=== PATIENT | female | born 1975 | race Hispanic/Latino ===

== ENCOUNTER → 2023-05-27 | Outpatient (CLI) | payer MEDICAID ==
[2023-05-27 15:57] LABS: CREATININE 0.9 mg/dL (0.5-1.0)
== END | disposition home or self-care (01) ==
LOC: LAB 15:12
PROVIDERS: ATTEND Surgery
DX: D17.5 Benign lipomatous neoplasm of intra-abdominal organs (principal)
CPT/HCPCS: 36415; 82565; 84520

== ENCOUNTER → 2023-06-03 | Outpatient (CLI) | payer MEDICAID ==
[~2023-06-03] MED LIST: IOHEXOL 350 MG/ML 100ML INFUS..BTL IV ONE
== END | disposition home or self-care (01) ==
LOC: RAH 07:48
PROVIDERS: ATTEND Surgery
DX: R16.0 Hepatomegaly, not elsewhere classified (principal); I70.90 Unspecified atherosclerosis; D17.5 Benign lipomatous neoplasm of intra-abdominal organs; Z90.49 Acquired absence of other specified parts of digestive tract
CPT/HCPCS: 74177; Q9967

== ENCOUNTER 2023-08-12 06:43 | Day surgery (SDC) | payer MEDICAID ==
[2023-08-07 12:29] LABS: BASOPHILS # (AUTO) 0.04 K/uL (0.00-0.20); BASOPHILS % (AUTO) 0.6 % (0.0-5.0); EOSINOPHILS # (AUTO) 0.14 K/uL (0.00-0.70); EOSINOPHILS % (AUTO) 2.2 % (0.0-8.0); HEMATOCRIT 44.9 % (36-48); IMMATURE GRANULOCYTE ABSOLUTE 0.02 K/uL (0-1); LYMPHOCYTES # (AUTO) 2.2 K/uL (1.0-4.8); LYMPHOCYTES % (AUTO) 34.3 % (21.0-51.0); MEAN CORPUSCULAR HEMOGLOBIN 27.9 pg (27.0-33.0); MEAN CORPUSCULAR HGB CONC 33.2 g/dL (32.0-36.0); MEAN CORPUSCULAR VOLUME 84.1 fL (79-99); MONOCYTES # (AUTO) 0.4 K/uL (0.1-1.0); MONOCYTES % (AUTO) 5.8 % (3.0-13.0); NEUTROPHILS # (AUTO) 3.6 K/uL (1.8-7.7); NEUTROPHILS % (AUTO) 56.8 % (40.0-77.0); PLATELET COUNT (AUTO) 310 K/uL (130-400); RED BLOOD CELL COUNT(AUTO) 5.34 MIL/uL (4.00-5.50); RED CELL DISTRIBUTION WIDTH 13.1 % (11.0-15.5); WHITE BLOOD COUNT (AUTO) 6.4 K/uL (4.8-10.8)
[2023-08-07 12:35] VITALS: BP 163/71; PULSE 78; RESP 18
[2023-08-12] VITALS (18 sets, daily range): BP systolic 81–149; BP diastolic 39–87; PULSE 78–104; RESP 13–18
[2023-08-12] MEDS: LACTATED RINGERS 1000ML 1,000 ML IV ONE (08:38)
[2023-08-12] MEDS: CEFAZOLIN SODIUM 2 GM VIAL ONE (08:39)
[2023-08-12] MEDS: CEFAZOLIN SODIUM 1 GM VIAL ONE (08:39)
[2023-08-12] MEDS ORDERED: DEXAMETHASONE SOD PHOSPHATE 10MG/ML 1ML VIAL ONE (08:54)
[2023-08-12] MEDS ORDERED: LIDOCAINE PF 100MG/5ML (2%) SYRINGE 5ML ONE (08:54)
[2023-08-12] MEDS ORDERED: SUCCINYLCHOLINE CHLORIDE 20 MG/ML 10 ML VIAL ONE (08:55)
[2023-08-12] MEDS ORDERED: ROCURONIUM BROMIDE 10MG/1ML 5ML VL ONE (08:55)
[2023-08-12] MEDS ORDERED: GLYCOPYRROLATE 0.2 MG/ML 5 ML VIAL ONE (08:55)
[2023-08-12] MEDS ORDERED: ONDANSETRON 4MG INJ ONE (08:55)
[2023-08-12] MEDS ORDERED: MIDAZOLAM HCL 1 MG/ML 2ML VIAL ONE (08:55)
[2023-08-12] MEDS ORDERED: NEOSTIGMINE METHYLSULFATE 1MG/ML IV ONE (08:55)
[2023-08-12] MEDS ORDERED: PROPOFOL 10 MG/ML 20ML VIAL IV ONE ×2 (08:55→08:58)
[2023-08-12] MEDS ORDERED: FENTANYL CITRATE PF 50 MCG/1 ML 2ML VIAL ONE (08:56)
[2023-08-12] MEDS ORDERED: EPINEPHRINE PF 1MG (1:1,000) 1 MG/ML AMP ONE (09:00)
[2023-08-12] MEDS ORDERED: LIDOCAINE HCL 2% JELLY 5 ML ONE (09:02)
[2023-08-12] MEDS: BUPIVACAINE/PF 0.25% 30ML VIAL IJ ONE (09:37)
[2023-08-12] MEDS: KETOROLAC 30MG VIAL (30MG/ML) ONE (12:08)
[2023-08-12] MEDS: ACETAMINOPHEN 1,000 MG/100 ML VIAL IV ONE (12:08)
== END 2023-08-12 13:15 | disposition home or self-care (01) ==
LOC: DAH 06:43
PROVIDERS: ATTEND Surgery
DX: D17.1 Benign lipomatous neoplasm of skin and subcutaneous tissue of trunk (principal); Z88.1 Allergy status to other antibiotic agents; Z90.49 Acquired absence of other specified parts of digestive tract; Z90.710 Acquired absence of both cervix and uterus
CPT/HCPCS: 85025; 36415; 22902; 88304; A4663 ×2; A4215 ×2; A4222 ×2; A4606; J7120; J3010; J0690 ×2; J1100; J0330; J0665; J3490 ×5; J0171; J2250; J2405; J1885; J2710; A4930; A4223 ×2; A4221 ×2; A4600 ×2; J2001; J2704; G0168